=== PATIENT | female | born 1935 | race African-American/Black ===

== ENCOUNTER 2016-08-18 05:51 | Emergency (ER) | payer OTHER ==
[~2016-08-18] VITALS: Ht 162.6 cm; Wt 97.3 kg
[~2016-08-18 05:51] MED LIST: ALBU0.086 INH; ALBU1AER INH; AMLO10 PO; BECL0.07 INH; CLON.5 PO; GLUCTAB PO; LASI20TA PO; MEDR4PAK3 PO; POTA-243 PO; ZITH250T PO
[2016-08-18 05:54] VITALS: BP 200/89; PULSE 80; RESP 18; TEMP 98.5
[2016-08-18] MEDS ORDERED: SODIUM CHLORIDE 0.9% FLUSH 10 ML FLUSH IVF PRN (06:15)
--- NOTE | 2016-08-18 06:19 | PD ---
HPI Chief Complaint: Injury Time Seen by Provider: 05:52 Travel History International Travel<30 days: No Contact w/Intl Traveler<30days: No Traveled to known affect area: No History of Present Illness HPI 80-year-old female with history of CAD, CHF, PAD, carotid stenosis, here for evaluation of left shoulder pain. She woke up this morning at around 3:00 AM with significant left shoulder pain that radiates up to her left neck and down her left arm. Family thought that she may have had some weakness in the left arm. Pain is constant, moderate to severe, worse with movement and palpation. According to the family, possibly 20 minutes prior to arrival, the patient was in significantly more pain. There are vague stories by the patient of recent falling either this past Friday or the Friday before, as well as this Friday. The patient denies ever sustaining head injury or LOC. She states that she was caught by someone prior to landing on the ground. She has chronic bilateral leg weakness, nothing new today. No head pain. She denies fevers or chills. No chest pain. PFSH Past Medical History Arthritis: Yes Asthma: Yes Autoimmune Disease: No Blood Disorders: No Anxiety: No Depression: No Heart Rhythm Problems: No Cancer: No Cardiovascular Problems: No High Cholesterol: Yes Chemotherapy: No Chest Pain: Yes Congestive Heart Failure: Yes COPD: Yes Cerebrovascular Accident: No Diabetes: Yes Patient Takes Glucophage: No Diminished Hearing: No Endocrine: No GERD: Yes Genitourinary: No Headaches: No Hepatitis: No Hiatal Hernia: No Hypertension: Yes Medical other: Yes (PATIENT STATES STENTS IN GROIN, LEG AND NECK ) Musculoskeletal: Yes Neurologic: No Psychiatric: No Respiratory: No Myocardial Infarction: No Radiation Therapy: No Seizures: No Sleep Apnea: No Ulcer: No Tetanus Vaccination: > 5 Years Menopausal: Yes Past Surgical History AICD: No Cardiac Surgery: Yes Genitourinary Surgery: No Pacemaker: No Social History Alcohol Use: No Tobacco Use: No Substance Use: No Allergies-Medications (Allergen,Severity, Reaction): Coded Allergies: Atrovent (Verified Allergy, Severe, 08/18/16) Iodine (Verified Allergy, Severe, 08/18/16) ANAPHYLACTIC SHOCK Shrimp (Verified Allergy, Severe, SWELLING IN THROAT AND HIVES ON SKIN, 08/18/16) Reported Meds & Prescriptions Reported Meds & Active Scripts Active Active Prescriptions or Reported Medications Unobtainable Review of Systems Except as stated in HPI: all other systems reviewed are Neg Physical Exam Narrative GENERAL: Well-developed, well-nourished, awake, alert, comfortable, no acute distress. SKIN: Focused skin assessment warm/dry. Area of ecchymosis to left anterior shoulder. HEAD: Atraumatic. Normocephalic. EYES: Pupils equal and round. No scleral icterus. No injection or drainage. ENT: Mucous membranes pink and moist. NECK: Trachea midline. No JVD. CARDIOVASCULAR: Regular rate and rhythm. Distal pulses are brisk and equal bilaterally. RESPIRATORY: No accessory muscle use. Clear to auscultation. Breath sounds equal bilaterally. GASTROINTESTINAL: Abdomen soft, non-tender, nondistended. MUSCULOSKELETAL: Left anterior shoulder with anterior ecchymosis with diffuse tenderness without warmth or erythema, without obvious deformity, with limited range of motion secondary to pain. NEUROLOGICAL: Awake and alert. No obvious cranial nerve deficits. Motor grossly within normal limits. Normal speech. Normal sensation to all 4 extremities. Normal range of flexion and extension in left hand/wrist with normal strength. PSYCHIATRIC: Appropriate mood and affect; insight and judgment normal. Data Data Last Documented VS Vital Signs Date Time Temp Pulse Resp B/P Pulse Ox O2 Delivery O2 Flow Rate FiO2 08/18/16 05:54 98.5 80 18 200/89 Orders Basic Metabolic Panel (Bmp) (08/18/16 06:11) Ckmb (Isoenzyme) Profile (08/18/16 06:11) Complete Blood Count With Diff (08/18/16 06:11) Magnesium (Mg) (08/18/16 06:11) Prothrombin Time / Inr (Pt) (08/18/16 06:11) Act Partial Throm Time (Ptt) (08/18/16 06:11) Troponin I (08/18/16 06:11) Chest, Single Ap (08/18/16 06:11) Ecg Monitoring (08/18/16 06:11) Iv Access Insert/Monitor (08/18/16 06:11) Oximetry (08/18/16 06:11) Sodium Chloride 0.9% Flush (Ns Flush) (08/18/16 06:15) Westergren Sedimentation Rate (08/18/16 06:11) C-Reactive Protein (Crp) (08/18/16 06:11) Ct Brain W/O Iv Contrast(Rout) (08/18/16 ) Ct Cerv Spine W/O Contrast (08/18/16 ) Shoulder, Complete (>2vws) (08/18/16 ) Ct Shoulder W/O Contrast (08/18/16 ) Morphine Inj (Morphine Inj) (08/18/16 07:15) Labs Laboratory Tests Test 08/18/16 06:15 White Blood Count 5.6 TH/MM3 Red Blood Count 4.03 MIL/MM3 Hemoglobin 11.2 GM/DL Hematocrit 34.8 % Mean Corpuscular Volume 86.5 FL Mean Corpuscular Hemoglobin 27.8 PG Mean Corpuscular Hemoglobin 32.1 % Concent Red Cell Distribution Width 15.8 % Platelet Count 219 TH/MM3 Mean Platelet Volume 9.2 FL Neutrophils (%) (Auto) 59.9 % Lymphocytes (%) (Auto) 24.2 % Monocytes (%) (Auto) 9.9 % Eosinophils (%) (Auto) 5.7 % Basophils (%) (Auto) 0.3 % Neutrophils # (Auto) 3.4 TH/MM3 Lymphocytes # (Auto) 1.4 TH/MM3 Monocytes # (Auto) 0.6 TH/MM3 Eosinophils # (Auto) 0.3 TH/MM3 Basophils # (Auto) 0.0 TH/MM3 CBC Comment DIFF FINAL Differential Comment Prothrombin Time 10.7 SEC Prothromb Time International 1.0 RATIO Ratio Activated Partial 27.9 SEC Thromboplast Time Sodium Level 141 MEQ/L Potassium Level 4.0 MEQ/L Chloride Level 106 MEQ/L Carbon Dioxide Level 28.5 MEQ/L Anion Gap 7 MEQ/L Blood Urea Nitrogen 16 MG/DL Creatinine 0.81 MG/DL Estimat Glomerular Filtration 82 ML/MIN Rate Random Glucose 104 MG/DL Calcium Level 9.2 MG/DL Magnesium Level 2.2 MG/DL C-Reactive Protein LESS THAN 0.29 MG/DL MDM Medical Decision Making Medical Screen Exam Complete: Yes Emergency Medical Condition: Yes Interpretation(s) EKG: Sinus, rate 80, normal axis, normal intervals, slight ST depressions in inferior and lateral leads, unchanged from prior, no ST segment elevations. Differential Diagnosis Osteoarthritis, musculoskeletal pain, septic arthritis, proximal humerus fracture, left shoulder dislocation, ACS, cervical spine injury, CVA not likely , cervical stenosis Narrative Course Initial vital signs show heart rate 80, blood pressure 200/89, temp of 98.5F. CBC shows WBC 5.6, hemoglobin 11.2, hematocrit 34.8, platelets 219. CMP Cardiac enzymes ESR CRP CT head: Unremarkable study. CT cervical spine: CONCLUSION: 1. Slight thecal sac stenosis C5-6 and effacement of the anterior CSF space at C4-5 and C6-7. 2. Neural foramina compromise left C5-C6 and left C7-T1. Chest x-ray: No acute cardiopulmonary disease. Left shoulder x-ray: Chronic changes and no evidence for acute fracture. At approximately 7:00 AM the patient was signed out to Dr. Stevens will follow-up with the rest of labs. CT of the left shoulder ordered at time of signout which she will also follow-up with and formulate a disposition. Scripts Unable to Obtain Active Prescriptions or Reported Meds Fercho Doty MD Aug 18, 2016 06:18
[2016-08-18 06:30] LABS: AUTOMATED NEUTROPHIL # 3.4 TH/MM3 (1.8-7.7); BASOPHIL % 0.3 % (0.0-2.0); EOSINOPHIL # 0.3 TH/MM3 (0-0.4); EOSINOPHIL % 5.7 % (0.0-4.0); HEMATOCRIT 34.8 % (35.0-46.0); HEMO FLAGS DIFF FINAL; LYMPH % 24.2 % (9.0-44.0); LYMPHOCYTE # 1.4 TH/MM3 (1.0-4.8); MEAN CELL VOLUME 86.5 FL (80.0-100.0); MEAN CORPUSCULAR HEMOGLOBIN 27.8 PG (27.0-34.0); MEAN CORPUSCULAR HGB CONC 32.1 % (32.0-36.0); MONO % 9.9 % (0.0-8.0); NEUT % 59.9 % (16.0-70.0); PLATELET COUNT 219 TH/MM3 (150-450); RED BLOOD COUNT 4.03 MIL/MM3 (4.00-5.30); RED CELL DISTRIBUTION WIDTH 15.8 % (11.6-17.2); WHITE BLOOD COUNT 5.6 TH/MM3 (4.0-11.0)
--- NOTE | 2016-08-18 06:31 | RADRPT ---
EXAM DATE/TIME: 08/18/2016 06:23 [facility] COMPARISON: No previous studies available for comparison. INDICATIONS : Left sided weakness. RADIATION DOSE: 33.42 CTDIvol (mGy) MEDICAL HISTORY : Congestive hearrt failure. Chronic obstructive pulmonary disease. Gastroesophageal reflux disease.Janessa betes. Hypertension. SURGICAL HISTORY : None. ENCOUNTER: Initial ACUITY: 1 day PAIN SCALE: 0/10 LOCATION: cranial TECHNIQUE: Multiple contiguous axial images were obtained of the head. Using automated exposure control and adj ustment of the mA and/or kV according to patient size, radiation dose was kept as low as reasonably a chievable to obtain optimal diagnostic quality images. FINDINGS: There is no evidence for intracranial hemorrhage, mass effect, mass lesions, edema, or extra-axial fl uid collections. The visualized bony structures appear intact. The ventricles are normal size for t he patient's age. There are no signs of acute infarction for technique. CONCLUSION: Unremarkable study. Jennifer Cooley MD on August 18, 2016 at 6:28 Board Certified Radiologist. This report was verified electronically.
--- NOTE | 2016-08-18 06:39 | RADRPT ---
EXAM DATE/TIME: 08/18/2016 06:23 [facility] COMPARISON: No previous studies available for comparison. INDICATIONS : Left sided weakness. RADIATION DOSE: 21.06 CTDIvol (mGy) MEDICAL HISTORY : Congestive hearrt failure. Gastroesophageal reflux disease. Chronic obstructive pulmonary disease.Janessa betes. Hypertension. SURGICAL HISTORY : None. ENCOUNTER: Initial ACUITY: 1 day PAIN SCALE: 5/10 LOCATION: neck TECHNIQUE: Volumetric scanning of the cervical spine was performed. Multiplanar reconstructions in the sagittal, coronal and oblique axial planes were performed. Using automated exposure control and adjustment o f the mA and/or kV according to patient size, radiation dose was kept as low as reasonably achievable to obtain optimal diagnostic quality images. FINDINGS: No evidence of subluxation. No definite fracture is seen for technique. C2-C3: There is no evidence for any significant compromise to the thecal sac, or the exiting nerve roots. N o appreciable thecal sac stenosis is seen. The neural foramina and lateral recess appear patent bila terally. C3-C4: Moderate degenerative changes are seen within the disc space and facets. There is no evidence for any significant compromise to the thecal sac, or the exiting nerve roots. No appreciable thecal sac ben nosis is seen. The neural foramina and lateral recess appear patent bilaterally. C4-C5: Moderate degenerative changes are seen within the disc space and facets. There is effacement of the a nterior CSF space due to chronic hypertrophic changes, some degree of bulging disc with compromise to the anterior CSF space, however overall no significant thecal sac stenosis is seen. C5-C6: Moderate degenerative changes are seen within the disc space and facets. There is moderate neural for juan compromise on the left due to asymmetrical bulging disc and hypertrophic changes. Slight overal l thecal sac stenosis is seen due to central disc/osteophyte complex and hypertrophic changes. C6-C7: Moderate degenerative changes are seen within the disc space and facets. There is effacement of the a nterior CSF space due to chronic hypertrophic changes, some degree of bulging disc with compromise to the anterior CSF space, however overall no significant thecal sac stenosis is seen. C7-T1: There is slight neural foramina compromise on the left due to asymmetrical bulging disc and hypertrop hic changes. Slight degenerative changes are seen within the disc space and facets. CONCLUSION: 1. Slight thecal sac stenosis C5-6 and effacement of the anterior CSF space at C4-5 and C6-7. 2. Neural foramina compromise left C5-C6 and left C7-T1. Jennifer Cooley MD on August 18, 2016 at 6:33 Board Certified Radiologist. This report was verified electronically.
[2016-08-18 06:42] LABS: APTT (PATIENT) 27.9 SEC (24.3-30.1); PROTHROMBIN TIME - PATIENT 10.7 SEC (9.8-11.6)
--- NOTE | 2016-08-18 06:48 | RADRPT ---
EXAM DATE/TIME: 08/18/2016 06:31 [facility] COMPARISON: No previous studies available for comparison. INDICATIONS : Pt woke having left shoulder pain- no known injury. MEDICAL HISTORY : None. SURGICAL HISTORY : None. ENCOUNTER: Initial ACUITY: 1 day PAIN SCORE: 6/10 LOCATION: Bilateral chest FINDINGS: The lungs are clear without infiltrate, nodule, or mass. There is no appreciable pleural effusion fo r technique. Heart and mediastinum are unremarkable. Chronic degenerative changes are present in sonia ateral shoulders and not changed. CONCLUSION: No acute cardiopulmonary disease. Jennifer Cooley MD on August 18, 2016 at 6:46 Board Certified Radiologist. This report was verified electronically.
--- NOTE | 2016-08-18 06:49 | RADRPT ---
EXAM DATE/TIME: 08/18/2016 06:32 [facility] COMPARISON: No previous studies available for comparison. INDICATIONS : Pt woke having left shoulder pain- no known injury. MEDICAL HISTORY : None. SURGICAL HISTORY : None. ENCOUNTER: Initial ACUITY: 1 day PAIN SCORE: 7/10 LOCATION: Left shoulder FINDINGS: No definite fractures, dislocations, lytic, or sclerotic lesions are seen. Moderate hypertrophic fierro ges are seen in the AC joint indenting the subacromial fat plane to a slight degree. Slight degenerat armin arthritis is also seen in the glenohumeral joint. CONCLUSION: Chronic changes and no evidence for acute fracture. Jennifer Cooley MD on August 18, 2016 at 6:47 Board Certified Radiologist. This report was verified electronically.
[2016-08-18 07:06] LABS: ANION GAP 7 MEQ/L (5-15); BICARBONATE 28.5 MEQ/L (21.0-32.0); BLOOD UREA NITROGEN 16 MG/DL (7-18); CHLORIDE 106 MEQ/L (98-107); GLOMERULAR FILTRATION RATE 82 ML/MIN (>89); MAGNESIUM 2.2 MG/DL (1.5-2.5); SODIUM (NA) 141 MEQ/L (136-145)
[2016-08-18] MEDS ORDERED: MORPHINE SULFATE 4 MG/ML INJ IV PUSH ONE (07:15)
[2016-08-18 07:22] LABS: CREATINE KINASE 70 U/L (26-192)
[2016-08-18 07:43] VITALS: O2SAT 98
--- NOTE | 2016-08-18 07:52 | RADRPT ---
EXAM DATE/TIME: 08/18/2016 07:22 [facility] COMPARISON: No previous studies available for comparison. INDICATIONS : Left shoulder pain for one day, fall two days ago. RADIATION DOSE: 16.77 CTDIvol (mGy) MEDICAL HISTORY : Hypertension. Chronic obstructive pulmonary disease. Congestive heart failure. SURGICAL HISTORY : cardiac surgery ENCOUNTER: Initial ACUITY: 1 day PAIN SCALE: 7/10 LOCATION: Left shoulder TECHNIQUE: Volumetric scanning of the shoulder was performed. Using automated exposure control and adjustment o f the mA and/or kV according to patient size, radiation dose was kept as low as reasonably achievable to obtain optimal diagnostic quality images. FINDINGS: High riding humeral head indicating rotator cuff tendon insufficiency. Bone alignment otherwise withi n normal limits. No evidence of fracture. Rotator cuff tendons cannot be directly evaluated on the CT without intra-articular contrast. Large subacromial bone spur. Moderate sized glenohumeral joint osteophytes. Mild glenohumeral joint narrowing. Gyulp-rj-ebxdjlyj s ized glenohumeral joint effusion. Moderate severity acromioclavicular joint hypertrophy. Prominent cr escentic intermediate density deep to the proximal deltoid muscle measuring 2 cm in thickness and sug gesting hematoma or complex fluid in the region of the subacromial subdeltoid bursa. CONCLUSION: 1. No evidence of fracture. 2. High riding humeral head suggesting rotator cuff tendon tear. The rotator cuff tendons cannot be d irectly evaluated on CT without intra-articular contrast. Integrity of the rotator cuff tendons could be further evaluated with MRI. 3. Heterogeneous intermediate density indicating hematoma or complex fluid in the region of the subac romial subdeltoid bursa. This finding could also be further evaluated with MRI. 4. Mild to moderate glenohumeral joint arthritic findings. 5. Moderate severity acromioclavicular joint arthrosis. Large subacromial bone spur. Nelson Loza MD on August 18, 2016 at 7:39 Board Certified Radiologist. This report was verified electronically.
[2016-08-18] MEDS ORDERED: HYDR-3533 PO (07:59)
--- NOTE | 2016-08-18 08:04 | PD ---
Physical Exam Narrative GENERAL: Well-nourished, well-developed patient. SKIN: Warm and dry. HEAD: Normocephalic and atraumatic. EYES: No injection or drainage. ENT: No nasal drainage noted. NECK: Supple, trachea midline. Nontender midline, tender across left trapezius CARDIOVASCULAR: Regular rate and rhythm RESPIRATORY: No increased effort. No accessory muscle use. EXTREMITIES: Pain with palpation of of left shoulder, traumatic hematoma noted anteriorly with ecchymosis overlying skin without laceration, range of motion is limited secondary to pain, no pain with other joints , neurovascularly intact , compartments soft. NEUROLOGICAL: Awake and alert. Motor and sensory grossly within normal limits except for her left arm is limited secondary to pain in left shoulder. Normal speech. Data Data Last Documented VS Vital Signs Date Time Temp Pulse Resp B/P Pulse Ox O2 Delivery O2 Flow Rate FiO2 08/18/16 05:54 98.5 80 18 200/89 Orders Basic Metabolic Panel (Bmp) (08/18/16 06:11) Ckmb (Isoenzyme) Profile (08/18/16 06:11) Complete Blood Count With Diff (08/18/16 06:11) Magnesium (Mg) (08/18/16 06:11) Prothrombin Time / Inr (Pt) (08/18/16 06:11) Act Partial Throm Time (Ptt) (08/18/16 06:11) Troponin I (08/18/16 06:11) Chest, Single Ap (08/18/16 06:11) Ecg Monitoring (08/18/16 06:11) Iv Access Insert/Monitor (08/18/16 06:11) Oximetry (08/18/16 06:11) Sodium Chloride 0.9% Flush (Ns Flush) (08/18/16 06:15) Westergren Sedimentation Rate (08/18/16 06:11) C-Reactive Protein (Crp) (08/18/16 06:11) Ct Brain W/O Iv Contrast(Rout) (08/18/16 ) Ct Cerv Spine W/O Contrast (08/18/16 ) Shoulder, Complete (>2vws) (08/18/16 ) Ct Shoulder W/O Contrast (08/18/16 ) Morphine Inj (Morphine Inj) (08/18/16 07:15) Electrocardiogram (08/18/16 06:00) Splint Or Brace Apply/Monitor (08/18/16 07:55) Labs Laboratory Tests Test 08/18/16 06:15 White Blood Count 5.6 TH/MM3 Red Blood Count 4.03 MIL/MM3 Hemoglobin 11.2 GM/DL Hematocrit 34.8 % Mean Corpuscular Volume 86.5 FL Mean Corpuscular Hemoglobin 27.8 PG Mean Corpuscular Hemoglobin 32.1 % Concent Red Cell Distribution Width 15.8 % Platelet Count 219 TH/MM3 Mean Platelet Volume 9.2 FL Neutrophils (%) (Auto) 59.9 % Lymphocytes (%) (Auto) 24.2 % Monocytes (%) (Auto) 9.9 % Eosinophils (%) (Auto) 5.7 % Basophils (%) (Auto) 0.3 % Neutrophils # (Auto) 3.4 TH/MM3 Lymphocytes # (Auto) 1.4 TH/MM3 Monocytes # (Auto) 0.6 TH/MM3 Eosinophils # (Auto) 0.3 TH/MM3 Basophils # (Auto) 0.0 TH/MM3 CBC Comment DIFF FINAL Differential Comment Erythrocyte Sedimentation Rate 38 mm/hr Prothrombin Time 10.7 SEC Prothromb Time International 1.0 RATIO Ratio Activated Partial 27.9 SEC Thromboplast Time Sodium Level 141 MEQ/L Potassium Level 4.0 MEQ/L Chloride Level 106 MEQ/L Carbon Dioxide Level 28.5 MEQ/L Anion Gap 7 MEQ/L Blood Urea Nitrogen 16 MG/DL Creatinine 0.81 MG/DL Estimat Glomerular Filtration 82 ML/MIN Rate Random Glucose 104 MG/DL Calcium Level 9.2 MG/DL Magnesium Level 2.2 MG/DL Total Creatine Kinase 70 U/L Troponin I 0.03 NG/ML C-Reactive Protein LESS THAN 0.29 MG/DL [facility] Supervised Visit with ANEESH: No Interpretation(s) Last 24 hours Impressions Chest X-Ray 08/18/16 0611 Signed Impressions: Service Date/Time: Thursday, August 18, 2016 06:31 - CONCLUSION: No acute cardiopulmonary disease. Jennifer Cooley MD Shoulder X-Ray 08/18/16 0000 Signed Impressions: Service Date/Time: Thursday, August 18, 2016 06:32 - CONCLUSION: Chronic changes and no evidence for acute fracture. Jennifer Cooley MD Head CT 08/18/16 0000 Signed Impressions: Service Date/Time: Thursday, August 18, 2016 06:23 - CONCLUSION: Unremarkable study. Jennfier Cooley MD Cervical Spine CT 08/18/16 0000 Signed Impressions: Service Date/Time: Thursday, August 18, 2016 06:23 - CONCLUSION: 1. Slight thecal sac stenosis C5-6 and effacement of the anterior CSF space at C4-5 and C6-7. 2. Neural foramina compromise left C5-C6 and left C7-T1. Jennifer Cooley MD CT shoulder with high riding humeral head with concern for rotator cuff tear, hematoma noted-patient given copy for follow-up Narrative Course Signed over to me to follow CT shoulder and reevaluate. CT without acute fracture. Possible rotator injury with associated hematoma. We'll place in sling and have follow closely with primary for MRI and orthopedic referral. Patient and family agree to plan. We'll provide with Lortab prescription for severe pain.Patient denies any new complaints and states that they are feeling better. all questions answered. Patient knows that follow up is incumbent on them and to return to the emergency room immediately if new or worsening symptoms develop. Patient given strict return precautions, vitals reviewed and are normal, agrees to further workup as an outpatient. Diagnosis Primary Impression: Left shoulder pain Qualified Code: M25.512 - Acute pain of left shoulder Additional Impression: Traumatic hematoma of left shoulder Qualified Code: S40.012A - Traumatic hematoma of left shoulder, initial encounter Patient Instructions: General Instructions Departure Forms: Tests/Procedures Additional Instruction: return as needed, follow with primary tomorrow, Lortab as needed for severe pain -don't take while driving Med/Other Pt SpecificInfo: Prescription(s) given Scripts Hydrocodone-Acetaminophen (Lortab)5-325 Mg Tab1 Tab PO Q6H PRN (PAIN) #10 TAB Prov:Zenaida Stevens MD 08/18/16 Disposition: 01 DISCHARGE HOME Condition: Stable Zenaida Stevens MD Aug 18, 2016 08:04
--- NOTE | 2016-08-18 14:03 | EKG ---
Date Performed: 08/18/2016 Time Performed: 06:00:30 PTAGE: 80 years EKG: Sinus rhythm MINIMAL ST DEPRESSION Compared to previous tracing, there is some improvement in the ST-T changes, e specially anterolaterally, otherwise no significant change BORDERLINE ECG NO PREVIOUS TRACING DOCTOR: Chad Arroyo Interpretating Date/Time 08/18/2016 14:02:33
== END 2016-08-18 08:22 | disposition home or self-care (01) ==
LOC: NEPE 05:51
DX: M25.512 Pain in left shoulder (principal); S40.012A Contusion of left shoulder, initial encounter; R94.31 Abnormal electrocardiogram [ECG] [EKG]; I50.9 Heart failure, unspecified; I25.10 Atherosclerotic heart disease of native coronary artery without angina pectoris; I73.9 Peripheral vascular disease, unspecified; I10 Essential (primary) hypertension; W19.XXXA Unspecified fall, initial encounter
CPT/HCPCS: 70450; 71010; 72125; 73030; 73200; 80048; 82550; 83735; 84484; 85025; 85610; 85652; 85730; 86140; 93005; 96374; 99285; J2270

== ENCOUNTER 2017-07-23 02:36 | Emergency (ER) | payer OTHER, MEDICAID ==
[~2017-07-23] VITALS: Ht 162.6 cm; Wt 100.0 kg
[~2017-07-23 02:36] MED LIST changes: -ALBU0.086 INH; -ALBU1AER INH; -AMLO10 PO; -BECL0.07 INH; -CLON.5 PO; -GLUCTAB PO; +HYDR-3533 PO; -LASI20TA PO; -MEDR4PAK3 PO; -POTA-243 PO; -ZITH250T PO
[2017-07-23 02:40] VITALS: BP 219/91; PULSE 105; RESP 22; TEMP 98.4; O2SAT 96
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
[2017-07-23 02:54] VITALS: BP 217/95; PULSE 103; RESP 20; O2SAT 98
[2017-07-23] MEDS ORDERED: SODIUM CHLORIDE 0.9% FLUSH 10 ML FLUSH IVF PRN (03:00)
[2017-07-23] MEDS ORDERED: GABA100C4 PO (03:07)
[2017-07-23] MEDS ORDERED: ALLO300T2 PO (03:07)
[2017-07-23] MEDS ORDERED: SPIR50TA PO (03:07)
[2017-07-23] MEDS ORDERED: ALPR0.25 PO (03:07)
[2017-07-23] MEDS ORDERED: CLON0.1T PO (03:07)
[2017-07-23] MEDS ORDERED: OXYB5TAB8 PO (03:07)
[2017-07-23] MEDS ORDERED: CEPH500C PO (03:07)
[2017-07-23] MEDS ORDERED: SENN1TAB PO (03:07)
[2017-07-23] MEDS ORDERED: FLUT50SP EACH NARE (03:07)
[2017-07-23 03:27] LABS: AUTOMATED NEUTROPHIL # 2.4 TH/MM3 (1.8-7.7); BASOPHIL % 0.2 % (0.0-2.0); EOSINOPHIL # 0.3 TH/MM3 (0-0.4); EOSINOPHIL % 4.6 % (0.0-4.0); HEMATOCRIT 33.8 % (35.0-46.0); LYMPH % 43.8 % (9.0-44.0); LYMPHOCYTE # 2.6 TH/MM3 (1.0-4.8); MEAN CELL VOLUME 86.9 FL (80.0-100.0); MEAN CORPUSCULAR HEMOGLOBIN 28.2 PG (27.0-34.0); MEAN CORPUSCULAR HGB CONC 32.4 % (32.0-36.0); MEAN PLATELET VOLUME 9.6 FL (7.0-11.0); MONO % 10.8 % (0.0-8.0); MONOCYTE # 0.6 TH/MM3 (0-0.9); NEUT % 40.6 % (16.0-70.0); PLATELET COUNT 254 TH/MM3 (150-450); RED BLOOD COUNT 3.89 MIL/MM3 (4.00-5.30); RED CELL DISTRIBUTION WIDTH 15.3 % (11.6-17.2); WHITE BLOOD COUNT 5.9 TH/MM3 (4.0-11.0)
--- NOTE | 2017-07-23 03:35 | RADRPT ---
EXAM DATE/TIME: 07/23/2017 03:18 [facility] COMPARISON: CHEST SINGLE AP, August 18, 2016, 6:31. INDICATIONS : Shortness of breath. MEDICAL HISTORY : Gastroesophageal reflux disease. Hypertension. Chronic obstructive pulmonary disease. Congestiv e heart failure, Diabetes SURGICAL HISTORY : None. ENCOUNTER: Initial ACUITY: 1 day PAIN SCORE: 5/10 LOCATION: Bilateral chest FINDINGS: A single view of the chest demonstrates the lungs to be symmetrically aerated without evidence of mas s, infiltrate or effusion. The cardiomediastinal contours are unremarkable. Osseous structures are intact. CONCLUSION: Normal examination. Dieudonne Garcia MD on July 23, 2017 at 3:34 Board Certified Radiologist. This report was verified electronically.
[2017-07-23 04:00] LABS: ALBUMIN 3.5 GM/DL (3.4-5.0); ALT (GPT) 11 U/L (10-53); AST (GOT) 21 U/L (15-37); BICARBONATE 29.3 MEQ/L (21.0-32.0); BLOOD UREA NITROGEN 19 MG/DL (7-18); CALCIUM 9.1 MG/DL (8.5-10.1); CHLORIDE 106 MEQ/L (98-107); CREATININE 1.01 MG/DL (0.50-1.00); GLOMERULAR FILTRATION RATE 63 ML/MIN (>89); GLUCOSE,RANDOM 120 MG/DL (74-106); SODIUM (NA) 142 MEQ/L (136-145)
[2017-07-23 04:02] LABS: ALKALINE PHOSPHATASE 143 U/L (45-117); TOTAL BILIRUBIN ADULT 0.2 MG/DL (0.2-1.0); TOTAL PROTEIN 8.1 GM/DL (6.4-8.2)
[2017-07-23] MEDS ORDERED: ALBUAER3 INH (04:42)
[2017-07-23] MEDS ORDERED: PRED20 PO (04:42)
[2017-07-23] MEDS ORDERED: ALBU0.08 NEB (04:47)
--- NOTE | 2017-07-23 09:14 | EKG ---
Date Performed: 07/23/2017 Time Performed: 04:22:31 PTAGE: 81 years EKG: Sinus rhythm NORMAL ECG PREVIOUS TRACING : 08/18/2016 06.00 DOCTOR: Dieudonne Martinez Interpretating Date/Time 07/23/2017 09:11:12
== END 2017-07-23 05:18 | disposition home or self-care (01) ==
LOC: NEPC 02:36
DX: J45.901 Unspecified asthma with (acute) exacerbation (principal); I11.0 Hypertensive heart disease with heart failure; I50.9 Heart failure, unspecified
CPT/HCPCS: 36600; 71045; 80053; 82805; 85025; 93005; 99285